=== PATIENT | male | born 1990 | race Caucasian/White ===

== ENCOUNTER → 2020-12-26 12:41 | Outpatient (CLI) | payer OTHER, SELFPAY ==
--- NOTE | ~2020-12-26 | XR_ITS ---
XR wrist RT w scaphoid DATE: 12/26/2020 13:01 INDICATION: Right wrist pain TECHNIQUE: 4 views COMPARISON: None FINDINGS: No fracture or dislocation, periosteal reaction or bone destruction, joint space narrowing, erosive change or chondrocalcinosis. IMPRESSION: Negative Reviewed, dictated and finalized at location A. IMPRESSION: Negative
--- NOTE | ~2020-12-26 | XR_ITS ---
EXAMINATION: XR hand RT min 3V DATE: 12/26/2020 13:01 INDICATION: Right hand pain. TECHNIQUE: 3 views of right hand were obtained. COMPARISON: None. FINDINGS: Bone alignment is normal. No fracture. Joint spaces are normal. IMPRESSION: 1. Normal right hand. Reviewed, dictated and finalized at location B. IMPRESSION: 1. Normal right hand.
== END ==
PROVIDERS: PCP Family Medicine; Visit Provider Family Medicine
DX: M25.531 Pain in right wrist (principal); M79.641 Pain in right hand
CPT/HCPCS: 73110; 73130

== ENCOUNTER 2022-05-07 08:44 | Emergency (ER) | payer OTHER, SELFPAY ==
--- NOTE | 2022-05-07 08:59 | ED.URI ---
HPI - URI/Sore Throat General Chief Complaint: Upper Respiratory Infection Stated Complaint: Sinus, Bodyaches Time Seen by Provider: 05/07/22 09:00 Source: patient Mode of arrival: ambulatory Limitations: no limitations History of Present Illness HPI Narrative: Mayito is a 32-year-old male patient presenting to clinic today with complaints of nasal congestion, fever, chills, sore throat, and body aches x2 days He reports his temperature was highest 102? F. Reports that he had COVID approximately 1 and half months ago MD elicited complaint: fever, cough, sore throat, rhinorrhea and nasal congestion Related Data Allergies Allergy/AdvReac Type Severity Reaction Status Date / Time No Known Allergies Allergy Verified 05/07/22 08:59 Review of Systems Review of Systems: Pertinent positives per HPI. Patient denies any rash, headache, visual changes, dizziness, shortness of breath, chest pain, palpitations, nausea, vomiting, diarrhea, constipation, abdominal pain, or any urinary issues. PMFSH Past Medical History Medical History Acute pharyngitis Allergic rhinitis Hx of infectious mononucleosis Sprain of left foot (~07/30/15) Viral syndrome Family History Family History Father Hypertension Hyperlipidemia Mother Family history of thyroid problem Hypertension Grandparent Hypertension Other Family history of Alzheimer's disease Family history of coronary artery disease Social History Social History Smoking status: Never smoker Second hand tobacco smoke exposure: No Alcohol intake: never Drinks per week: 4 Substance use: never Substance use type: does not use Gender identity (if verbalized by the patient): Male Comments At the time of my signature, I reviewed and agree with the nursing past medical, surgical, social, and family history. There is no relevant family history pertinent to the patient complaint. Exam Narrative: General: Well-developed, well nourished, in no apparent distress Head: Normocephalic, atraumatic Eyes: Pupils equally round and reactive to light bilaterally, EOM intact, sclera and conjunctive clear, no discharge, lids normal Ears: TMs intact and clear, ear canals clear, no drainage, grossly hearing normal. Nose: Nares patent, clear nasal discharge, moderate inflammation, no sinus tenderness. Mouth: Oral pharynx without lesions or masses, good dentition, MMM. oropharynx red Neck: Supple, trachea midline, no enlargement of anterior or posterior cervical nodes, no thyroid masses or goiter palpable. Cardio: Regular rate and rhythm, s1 and s2 normal, no murmur appreciated. Resp: Clear to auscultation bilaterally, no rhonchi, rales, wheezing or rubs Course Course Emergency Course: Portions of this record may have been created with voice recognition software. Level of Care: Express Care Visit Vital Signs Vital signs: Vital Signs Temperature 36.8 C 05/07/22 09:03 Pulse Rate 99 05/07/22 09:03 Respiratory Rate 16 05/07/22 09:03 Blood Pressure 121/76 05/07/22 09:03 Pulse Oximetry 98 05/07/22 09:03 Oxygen Delivery Room Air 05/07/22 09:03 Temperature 36.8 C 05/07/22 09:03 Pulse Rate 99 05/07/22 09:03 Respiratory Rate 16 05/07/22 09:03 Blood Pressure 121/76 05/07/22 09:03 Pulse Oximetry 98 05/07/22 09:03 Oxygen Delivery Room Air 05/07/22 09:03 Vital signs reviewed MDM - URI/Sore Throat MDM Narrative Medical decision making narrative: At the time of visit patient is resting comfortably on the exam table. COVID, flu, and strep testing were obtained and were all negative in the clinic today. I suspect patient has URI/pharyngitis/ viral syndrome. Prescription for prednisone was sent for the nasal congestion and sinus pressure. Supportive
[2022-05-07 09:03] VITALS: BP 121/76; PULSE 99; RESP 16; TEMP 36.8; O2SAT 98
== END 2022-05-07 09:40 | disposition home or self-care (01) ==
PROVIDERS: Emergency Provider Nurse Practitioner Family; PCP Family Medicine
DX: J06.9 Acute upper respiratory infection, unspecified (principal); B34.9 Viral infection, unspecified; J02.9 Acute pharyngitis, unspecified; Z20.822 Contact with and (suspected) exposure to COVID-19; Z86.16 Personal history of COVID-19
CPT/HCPCS: 87426; 87804; 87880; 99213; C9803; G0463

== ENCOUNTER 2022-10-21 19:57 | Emergency (ER) | payer OTHER, SELFPAY ==
--- NOTE | ~2022-10-21 | CT_ITS ---
EXAMINATION: CT BRAIN W/O DATE: 10/22/2022 00:16 INDICATION: Headache. TECHNIQUE: Computed tomography (CT) of the head was performed without intravenous contrast. The dose- length product was 681.00 mGy-cm. Automated exposure control and iterative reconstruction technique w ere employed. COMPARISON: No prior studies for comparison. FINDINGS: Normal brain parenchymal volume for age. Normal stephen-white differentiation. No acute intrac ranial hemorrhage, infarction, mass or mass effect. No ventriculomegaly or midline shift. Midline sagittal images demonstrate a normal corpus callosum, c raniovertebral junction and sella turcica. Basilar cisterns are patent. Paranasal sinuses and mastoids are pneumatized. No depressed skull fractures. IMPRESSION: 1. No acute intracranial abnormality. Reviewed, dictated and finalized at location L.
[2022-10-21 20:18] VITALS: BP 133/102; PULSE 86; RESP 16; TEMP 36.5; O2SAT 100
[2022-10-21 23:24] VITALS: BP 125/100; PULSE 70; RESP 13; TEMP 36.6; O2SAT 100
[2022-10-21 23:39] LABS: Appearance Urine Clear (Clear); Bilirubin Urine Negative (Negative); Blood Urine Negative (Negative); Color Urine Yellow (Yellow); Glucose Urine UA Negative (Negative); Ketones Urine Negative (Negative); Leukocyte Esterase Ur Negative LEU/UL (Negative); Nitrate Urine Negative (Negative); Protein Urine Negative (Negative); Specific Grav Ur 1.012 (1.001-1.035); Urobilinogen Urine 0.2 mg/dL (<2.0); pH Urine 5.5 (5.0-9.0)
[2022-10-21 23:45] LABS: Add Urine Microscopic? NO
[2022-10-21 23:58] LABS: Basophils Absolute Auto 0.1 K/mm3 (0.0-0.1); Eosinophils Absolute Auto 0.1 K/mm3 (0-0.3); Eosinophils Percent Auto 1.2 % (0-4.4); Hematocrit 44.2 % (42.0-52.0); Hemoglobin 14.8 g/dL (14.0-18.0); Immature Granulocyte Absolute 0.01 K/mm3 (0.00-0.031); Immature Granulocyte Percent A 0.1 % (0-0.5); Lymphocytes Absolute Auto 2.94 K/mm3 (0.9-3.2); Lymphocytes Percent Auto 42.8 % (18.3-44.2); Mean Corpuscular HGB Conc 33.5 g/dl (32-36); Mean Corpuscular Hemoglobin 28.3 pg (26-34); Mean Corpuscular Volume 84.5 fl (80-100); Mean Platelet Volume 8.5 fl (7.4-10.4); Monocytes Absolute Auto 0.5 K/mm3 (0.1-0.6); Neutrophils Absolute Auto 3.3 K/mm3 (1.3-6.7); Neutrophils Percent Auto 47.9 % (45.5-73.1); Platelet Count Result 255 k/mm3 (150-375); Red Blood Count 5.23 M/mm3 (4.6-6.20); Red Cell Distribution Width 13.8 % (11.5-14.5); White Blood Count 6.9 K/mm3 (4.5-10.0)
--- NOTE | 2022-10-22 00:08 | ECG_ITS ---
Measurements Intervals [place] Rate: 68 P: 55 WI: 145 QRS: 50 QRSD: 101 T: 50 QT: 378 QTc: 403 Interpretive Statements SINUS RHYTHM NO PREVIOUS ECG AVAILABLE FOR COMPARISON Electronically Signed On 10-22-2022 13:51:54 CDT by Loan Coulter M.D.
[2022-10-22 00:18] LABS: Alanine Aminotransferase 37 U/L (6-50); Albumin Level 4.8 g/dL (3.5-5.1); Alkaline Phosphatase 53 U/L (38-126); Anion Gap 7 mmol/L (8-16); Aspartate Amino Transferase 32 U/L (17-59); Bilirubin,Total 0.6 mg/dL (0.2-1.3); Blood Urea Nitrogen 18 mg/dL (9-20); Calcium 8.8 mg/dL (8.4-10.2); Carbon Dioxide 29 mmol/L (22-30); Chloride 102 mmol/L (98-107); Estimated CRCL calculation 108 ml/min; Estimated Glomerular Filt Rate > 60; Glucose 100 mg/dL (65-110); Lipase 43 U/L (23-300); Potassium 4.2 mmol/L (3.4-5.0); Sodium 138 mmol/L (137-145)
[2022-10-22] MEDS: SODIUM CHLORIDE 0.9% IV 1,000 ML 999 ML IV CONT (00:31)
[2022-10-22] MEDS: diphenhydrAMINE HCl INJ 50 MG/ML VIAL IV PUSH (00:31)
[2022-10-22] MEDS: METOCLOPRAMIDE HCL INJ 10 MG/2 ML VIAL IV PUSH (00:31)
--- NOTE | 2022-10-22 01:15 | ED.GENADULT ---
HPI - General Adult General Chief complaint: Nausea/Vomiting/Diarrhea Stated complaint: [place], dizziness, nausea and vomiting since yesterday Time Seen by Provider: 10/21/22 23:48 History of Present Illness HPI narrative: Patient 32-year-old gentleman who presents emergency department with chief complaint of headache and nausea and vomiting. Reports that yesterday he had symptoms that started when he was working patient reports no focal motor deficits reports that symptoms went away and then this evening after he was eating the symptoms came back patient reports he felt very nauseated reports that he had a headache, patient reports that he is arrived to the emergency department his symptoms are starting to feel somewhat better. Related Data Allergies Allergy/AdvReac Type Severity Reaction Status Date / Time No Known Allergies Allergy Verified 10/21/22 19:57 Review of Systems Review of Systems: A 10 system review of systems was completed on the patient and is negative except for what is stated in the HPI. Nursing and ancillary documentation was reviewed. [facility] Past Medical History Medical History Acute pharyngitis Allergic rhinitis Hx of infectious mononucleosis Sprain of left foot (~07/30/15) Viral syndrome Family History Family History Father Hypertension Hyperlipidemia Mother Family history of thyroid problem Hypertension Grandparent Hypertension Other Family history of Alzheimer's disease Family history of coronary artery disease Social History Social History Smoking status: Never smoker Second hand tobacco smoke exposure: No Alcohol intake: never Drinks per week: 4 Substance use: never Substance use type: does not use Gender identity (if verbalized by the patient): Male Exam Narrative: GENERAL: Well-appearing, well-nourished, and in no acute distress. HEAD: Normocephalic, atraumatic. EYES: PERRLA and EOMI. ENT: Nares clear, no rhinorrhea or epistaxis. Mucous membranes moist. NECK: Supple. CHEST: Clear to auscultation. No respiratory distress. HEART: Regular rate and rhythm. No murmur heard. Normal peripheral pulses. ABDOMEN: Soft, nontender, nondistended, normal active bowel sounds. EXTREMITIES: Normal range of motion. No edema. SKIN: Warm, dry, no rash. NEURO: No focal deficits. Alert and oriented x3. PSYCH: Normal mood and affect. Course Vital Signs Vital signs: Vital Signs Temperature 36.5 C 10/21/22 20:18 Pulse Rate 86 10/21/22 20:18 Respiratory Rate 16 10/21/22 20:18 Blood Pressure 133/102 H 10/21/22 20:18 Pulse Oximetry 100 10/21/22 20:18 Oxygen Delivery Room Air 10/21/22 20:18 Temperature 36.6 C 10/21/22 23:24 Pulse Rate 70 10/21/22 23:24 Respiratory Rate 13 10/21/22 23:24 Blood Pressure 125/100 H 10/21/22 23:24 Pulse Oximetry 100 10/21/22 23:24 Oxygen Delivery Room Air 10/21/22 20:18 Medical Decision Making MDM Narrative Medical decision making narrative: Differential diagnosis includes migraine, intracranial hemorrhage, viral syndrome, dehydration, electrolyte abnormality. CT head showed no evidence of acute abnormality Laboratory studies were obtained which showed a normal CBC normal electrolytes urinalysis was within normal limits specific gravity was 1.012 and there were negative ketones Patient received a liter of fluids and received a typical migraine cocktail symptoms have essentially resolved at this point and the patient be discharged home. Vital Signs Vital Signs: Vital Signs Temperature 36.5 C 10/21/22 20:18 Pulse Rate 86 10/21/22 20:18 Respiratory Rate 16 10/21/22 20:18 Blood Pressure 133/102 H 10/21/22 20:18 Pulse Oximetry 100 10/21/22 20:18 Oxygen Delivery Room Air 10/21/22 20:1
== END 2022-10-22 01:27 | disposition home or self-care (01) ==
PROVIDERS: Emergency Provider Emergency Medicine; PCP Family Medicine
DX: R51.9 Headache, unspecified (principal)
CPT/HCPCS: 36415; 70450; 80053; 81003; 83690; 85025; 93005; 96361; 96374; 96375; 99284; J1200; J2765; J7030

== ENCOUNTER 2023-01-22 16:47 | Emergency (ER) | payer OTHER, SELFPAY ==
--- NOTE | 2023-01-22 16:54 | ED.URI ---
HPI - URI/Sore Throat General Chief Complaint: Upper Respiratory Infection Stated Complaint: Sore Throat,Runny Nose Time Seen by Provider: 01/22/23 16:54 Source: patient Mode of arrival: ambulatory Limitations: no limitations History of Present Illness HPI Narrative: 32-year-old male presents with complaint of nasal congestion, postnasal drainage, sore throat for approximately 2 weeks. Patient reports pain to right ear for past 3-4 days. Afebrile. Denies nausea vomiting diarrhea. Taking [id number] cold and flu medication to treat his symptoms. All systems reviewed and negative except as noted above. Related Data Allergies Allergy/AdvReac Type Severity Reaction Status Date / Time No Known Allergies Allergy Verified 01/22/23 16:49 Review of Systems Review of Systems: CONSTITUTIONAL: Denies fever, chills, or sweats. EYES: Denies visual changes, redness, or discharge. ENT: Reports rhinorrhea, congestion, sore throat, right ear pain. CARDIOVASCULAR: Denies chest pain, palpitations, or edema. RESPIRATORY: Denies cough or dyspnea. GASTROINTESTINAL: Denies abdominal pain, nausea, vomiting, or diarrhea. GENITOURINARY: Denies dysuria or hematuria. SKIN: Denies rash or itching. MUSCULOSKELETAL: Denies back pain, joint pain, or myalgia. NEUROLOGIC: Denies headache, numbness, or weakness. PSYCHIATRIC: Denies anxiety or depression. All other systems reviewed are negative, except as documented in HPI. [facility] Past Medical History Medical History Acute pharyngitis Allergic rhinitis Hx of infectious mononucleosis Sprain of left foot (~07/30/15) Viral syndrome Family History Family History Father Hypertension Hyperlipidemia Mother Family history of thyroid problem Hypertension Grandparent Hypertension Other Family history of Alzheimer's disease Family history of coronary artery disease Social History Social History Smoking status: Never smoker Second hand tobacco smoke exposure: No Alcohol intake: never Drinks per week: 4 Substance use: never Substance use type: does not use Gender identity (if verbalized by the patient): Male Comments At time of signature, agree with nursing past medical, surgical, social and family history. There is no relevant family history pertinent to the presenting complaint. Exam Narrative: GENERAL: This is a well-nourished, well-developed patient, in no apparent distress. HEAD: normocephalic, atraumatic. EYES: PERRL. Sclera clear/white. Vision is grossly intact. EARS: External ears normal, auditory canals clear and without drainage, fluid to bilateral TMs, mild erythema R ear NOSE: External nose normal with clear nasal drainage, moderate congestion THROAT: Mucous membranes moist, mild erythema wtih PND NECK: Neck supple, non-tender without lymphadenopathy, masses or thyromegaly. CARDIOVASCULAR: Regular rate and rhythm without murmurs, gallops, or rubs. RESPIRATORY: Clear to auscultation. Breath sounds equal bilaterally. No wheezes, rales, or rhonchi. SKIN: warm, Dry, intact with no suspicious lesions or rash, good texture and turgor. NEURO: awake, alert, and oriented to person, place and time. There were no obvious focal neurologic abnormalities. EXTREMITIES: No joint tenderness, effusion, or edema noted. Course Course Level of Care: Express Care Visit Vital Signs Vital signs: Reviewed MDM - URI/Sore Throat MDM Narrative Medical decision making narrative: Patient is aware of diagnosis, understands and agrees to treatment plan. Anticipatory guidance given. Patient agrees to follow-up as directed and is aware of reasons to seek care at the emergency department. Portions of this record may have been created with voice recognition software Differenti
[2023-01-22 16:55] VITALS: BP 138/86; PULSE 68; RESP 18; TEMP 36.3; O2SAT 99
== END 2023-01-22 17:07 | disposition home or self-care (01) ==
PROVIDERS: Emergency Provider Nurse Practitioner Family
DX: H65.01 Acute serous otitis media, right ear (principal); J01.90 Acute sinusitis, unspecified
CPT/HCPCS: 99213; G0463

== ENCOUNTER 2023-04-05 08:10 | Emergency (ER) | payer OTHER, SELFPAY ==
--- NOTE | ~2023-04-05 | XR_ITS ---
EXAMINATION: [id number] DATE: 04/05/2023 08:50 INDICATION: Left rib pain. Fall. TECHNIQUE: A frontal view of the chest and 2 views on 4 radiographs of the left ribs were obtained. COMPARISON: None. FINDINGS: There is no pneumonia, pleural effusion, or pneumothorax. The heart size is normal. IMPRESSION: 1. No rib fracture. Reviewed, dictated and finalized at location A. STRIKER IMPRESSION: 1. No rib fracture.
[2023-04-05 08:15] VITALS: BP 140/80; PULSE 68; RESP 16; TEMP 35.7; O2SAT 100
--- NOTE | 2023-04-05 08:38 | ED.GENADULT ---
HPI - General Adult General Chief complaint: Fall Stated complaint: Lt rib pain Time Seen by Provider: 04/05/23 08:32 Source: patient and RN notes reviewed Mode of arrival: ambulatory Limitations: no limitations History of Present Illness HPI narrative: Patient presents today complaining of left lateral and posterior rib pain. Five days ago, patient was walking his dog outside when he tripped and fell, striking his ribs on the curb. Reports occasional radiation from the ribs to the left groin area. Pain increases with movement. Currently rates his pain 11/16 has been taking Tylenol with mild relief. Related Data Home Medications Medication Instructions Recorded Confirmed No Home Medications 04/05/23 04/05/23 Allergies Allergy/AdvReac Type Severity Reaction Status Date / Time No Known Allergies Allergy Verified 04/05/23 08:11 Review of Systems Review of Systems: CONSTITUTIONAL: Denies body aches, fever, chills, or sweats. EYES: Denies visual changes, redness, or discharge. ENT: Denies rhinorrhea, congestion, sore throat, or otalgia. CARDIOVASCULAR: Denies chest pain, palpitations, or edema. RESPIRATORY: Denies cough or dyspnea.+ left rib pain GASTROINTESTINAL: Denies abdominal pain, nausea, vomiting, or diarrhea. GENITOURINARY: Denies dysuria or hematuria. SKIN: Denies rash, itching, or wounds. MUSCULOSKELETAL: Denies back pain, joint pain, or myalgia. NEUROLOGIC: Denies headache, numbness, tingling, or weakness. PSYCH: Denies depression or anxiety. [facility] Past Medical History Medical History Acute pharyngitis Allergic rhinitis Hx of infectious mononucleosis Sprain of left foot (~07/30/15) Viral syndrome Family History Family History Father Hypertension Hyperlipidemia Mother Family history of thyroid problem Hypertension Grandparent Hypertension Other Family history of Alzheimer's disease Family history of coronary artery disease Social History Social History Smoking status: Never smoker Second hand tobacco smoke exposure: No Alcohol intake: never Drinks per week: 4 Substance use: never Substance use type: does not use Gender identity (if verbalized by the patient): Male Comments At time of signature, I have reviewed and agree with nursing past medical, surgical, social and family history unless otherwise noted. Please see nursing chart for further information. There is no relevant family history pertinent to the presenting complaint Exam Narrative: GENERAL: Well-appearing, well-nourished, and in no acute distress. HEAD: Normocephalic, atraumatic. EYES: EOMI. No redness or drainage. Conjunctivae normal. ENT: Mucous membranes pink and moist. NECK: Normal AROM. Supple. No lymphadenopathy. CHEST: No respiratory distress. Clear to auscultation. Tenderness to the left lower lateral and posterior ribs. No deformity, edema, ecchymosis, or crepitus noted. HEART: Regular rate and rhythm. No murmur appreciated. Normal peripheral pulses. ABDOMEN: Soft, nontender, nondistended, normal active bowel sounds. EXTREMITIES: Normal range of motion. No edema. SKIN: Warm, dry, no rash. Capillary refill normal. Normal skin turgor. NEURO: No focal deficits. Alert and oriented x3. Gait steady. PSYCH: Normal affect. No signs of depression or anxiety. Course Course Level of Care: Express Care Visit Vital Signs Vital signs: Vital Signs Temperature 96.2 F L 04/05/23 08:15 Pulse Rate 68 04/05/23 08:15 Respiratory Rate 16 04/05/23 08:15 Blood Pressure 140/80 04/05/23 08:15 Pulse Oximetry 100 04/05/23 08:15 Oxygen Delivery Room Air 04/05/23 08:15 Temperature 96.2 F L 04/05/23 08:15 Pulse Rate 68 04/05/23 08:15 Respiratory Rate 16 04/05/23 08:15 Blood Pressure
== END 2023-04-05 09:07 | disposition home or self-care (01) ==
PROVIDERS: Emergency Provider Nurse Practitioner; PCP Family Medicine
DX: S20.212A Contusion of left front wall of thorax, initial encounter (principal); W01.0XXA Fall on same level from slipping, tripping and stumbling without subsequent striking against object, initial encounter
CPT/HCPCS: 71101; 99213; G0463

== ENCOUNTER 2023-06-15 13:41 | Emergency (ER) | payer OTHER, SELFPAY ==
[2023-06-15 13:52] VITALS: BP 147/80; PULSE 94; RESP 18; TEMP 37.2; O2SAT 100
--- NOTE | 2023-06-15 13:52 | ED.ALLEREA ---
HPI - Allergic Reaction General Chief complaint: Allergic Reaction Stated complaint: Allergic Reaction, Throat Swelling Source: patient Mode of arrival: ambulatory Limitations: no limitations History of Present Illness HPI narrative: 33 y/o male presented for c/o throat swelling sensation. Symptoms started after eating a chicken sandwich at lunch. Denies lip or tongue swelling, or itching. States his throat looks swollen. Denies sob, wheezing, dizziness, difficulty swallowing or maintaining secretions, n/v/d/f/c. Denies any allergies. Related Data Home Medications Medication Instructions Recorded Confirmed No Home Medications 06/15/23 06/15/23 Allergies Allergy/AdvReac Type Severity Reaction Status Date / Time No Known Allergies Allergy Verified 06/15/23 13:51 Review of Systems Review of Systems: CONSTITUTIONAL: Denies body aches, fever, chills, or sweats. EYES: Denies visual changes, redness, or discharge. ENT: Endorses throat swelling Denies rhinorrhea, congestion, sore throat, or otalgia. CARDIOVASCULAR: Denies chest pain, palpitations, or edema. RESPIRATORY: Denies cough or dyspnea. GASTROINTESTINAL: Denies abdominal pain, nausea, vomiting, or diarrhea. SKIN: Denies rash, itching MUSCULOSKELETAL: Denies back pain, joint pain, or myalgia. NEUROLOGIC: Denies headache, numbness, tingling, or weakness. All systems reviewed & are unremarkable except as noted in HPI and below PMFSH Past Medical History Medical History Acute pharyngitis Allergic rhinitis Hx of infectious mononucleosis Sprain of left foot (~07/30/15) Viral syndrome Family History Family History Father Hypertension Hyperlipidemia Mother Family history of thyroid problem Hypertension Grandparent Hypertension Other Family history of Alzheimer's disease Family history of coronary artery disease Social History Social History Smoking status: Never smoker Second hand tobacco smoke exposure: No Alcohol intake: never Drinks per week: 4 Substance use: never Substance use type: does not use Gender identity (if verbalized by the patient): Male Comments At time of signature, I have reviewed and agree with nursing past medical, surgical, social and family history unless otherwise noted. Please see nursing chart for further information. There is no relevant family history pertinent to the presenting complaint Exam Narrative: GENERAL: Well-appearing and in no acute distress. EYES: EOMI. No redness or drainage. Conjunctivae normal. ENT: Mucous membranes pink and moist. Tonsils enlarged 2+, mild pharyngeal swelling. Airway patent. No rhinorrhea. TMs normal bilaterally. Uvula midline. NECK: Normal AROM. Supple. No lymphadenopathy or induration below mandible CHEST: No respiratory distress. Clear to auscultation. Speaks full sentences. HEART: Regular rate and rhythm. No murmur appreciated. Normal peripheral pulses. SKIN: Warm, dry, no rash Normal skin turgor. NEURO: Alert and oriented x3. Gait steady. PSYCH: Normal affect. Course Course Emergency Course: Patient is aware of diagnosis, understands and agrees to treatment plan. Anticipatory guidance given. Patient agrees to follow-up as directed and is aware of reasons to seek care at the emergency department. Portions of this record may have been created with voice recognition software Level of Care: Express Care Visit Vital Signs Vital signs: Vital Signs Temperature 99.0 F 06/15/23 13:52 Pulse Rate 94 06/15/23 13:52 Respiratory Rate 18 06/15/23 13:52 Blood Pressure 147/80 H 06/15/23 13:52 Pulse Oximetry 100 06/15/23 13:52 Oxygen Delivery Room Air 06/15/23 13:52 Temperature 99.0 F 06/15/23 13:52 Pulse Rate 94 06/15/23 13:52 Respiratory Rate 18 0
[2023-06-15] MEDS: methylPREDNISolone SOD SUCC 125 MG VIAL IM (13:58)
[2023-06-15] MEDS: FAMOTIDINE 20 MG TABLET 40 MG PO (14:00)
[2023-06-15] MEDS: diphenhydrAMINE HCl CAP 25 MG CAPSULE PO (14:01)
== END 2023-06-15 14:51 | disposition short-term general hospital (02) ==
PROVIDERS: Emergency Provider Nurse Practitioner Family; PCP Family Medicine
DX: J02.9 Acute pharyngitis, unspecified (principal)
CPT/HCPCS: 96372; 99213; A9270; G0463; J2930

== ENCOUNTER 2023-06-15 15:05 | Emergency (ER) | payer OTHER, SELFPAY ==
[2023-06-15 15:13] VITALS: BP 142/96; PULSE 75; RESP 20; TEMP 36.9; O2SAT 100
[2023-06-15 15:29] VITALS: BP 136/84; PULSE 82; RESP 14; O2SAT 100
[2023-06-15 15:55] LABS: Strep Group A RT-PCR DETECTED (Negative)
[2023-06-15 16:37] VITALS: BP 122/81; PULSE 77; RESP 17; O2SAT 98
--- NOTE | 2023-06-15 17:40 | ED.ALLEREA ---
HPI - Allergic Reaction General Chief complaint: Allergic Reaction Stated complaint: allergic reaction Time Seen by Provider: 06/15/23 15:59 History of Present Illness HPI narrative: 33-year-old male presenting emergency department from urgent care for concern of possible allergic reaction. Patient began having some sore throat after eating at the urgent care he is treated with epinephrine, famotidine steroids and Benadryl. Patient presented to the emergency department by private transport. Patient denies any rashes swelling of tongue lips chest pain or shortness of breath. Patient complaint is sore throat. Patient states he does feel improved after the treatment. Patient did have hot wings for lunch. Related Data Allergies Allergy/AdvReac Type Severity Reaction Status Date / Time No Known Allergies Allergy Verified 06/15/23 13:51 Review of Systems Review of Systems: All systems reviewed & are unremarkable except as noted in HPI and below PMFSH Past Medical History Medical History Acute pharyngitis Allergic rhinitis Hx of infectious mononucleosis Sprain of left foot (~07/30/15) Viral syndrome Family History Family History Father Hypertension Hyperlipidemia Mother Family history of thyroid problem Hypertension Grandparent Hypertension Other Family history of Alzheimer's disease Family history of coronary artery disease Social History Social History Smoking status: Never smoker Second hand tobacco smoke exposure: No Alcohol intake: never Drinks per week: 4 Substance use: never Substance use type: does not use Gender identity (if verbalized by the patient): Male Exam Narrative: APPEARANCE: Well appearing, no pain, no distress, well-nourished. HEAD: normocephalic, atraumatic. EYES: PERRLA/EOMI, conjunctivae clear. NOSE: Normal no drainage EARS:TMS clear with good light reflex. THROAT: Pharynx clear, no exudate. NECK: Supple. No adenopathy, no masses. RESPIRATORY: Airway patent, respirations nonlabored. Clear to auscultation bilaterally, no rales, rhonchi, wheezing. CARDIOVASCULAR: Regular rate and rhythm without murmurs rubs or gallops. ABDOMINAL: Soft, nontender, nondistended, normal bowel sounds MUSCULOSKELETAL: Moves all extremities. Strength/ROM intact, No edema, No calf tenderness. NEURO: Alert. Cranial nerves II through XII intact. Grossly intact SKIN: Warm, dry. Normal Color Course Course Emergency Course: 33-year-old male presenting emergency department for evaluation of a possible allergic reaction. Patient did test positive for group a strep. Patient will be started on Augmentin and patient will also be started short course of steroids. All questions concerns were addressed patient was comfortable with the plan for discharge and close follow-up. Vital Signs Vital signs: Vital Signs Temperature 98.4 F 06/15/23 15:13 Pulse Rate 75 06/15/23 15:13 Respiratory Rate 20 06/15/23 15:13 Blood Pressure 142/96 H 06/15/23 15:13 Pulse Oximetry 100 06/15/23 15:13 Oxygen Delivery Room Air 06/15/23 15:13 Temperature 98.2 F 06/15/23 17:52 Pulse Rate 67 06/15/23 17:52 Respiratory Rate 15 06/15/23 17:52 Blood Pressure 124/79 06/15/23 17:52 Pulse Oximetry 100 06/15/23 17:52 Oxygen Delivery Room Air 06/15/23 15:13 MDM - Allergic Reaction Lab Data Labs: Lab Results 06/15/23 Range/Units 15:28 Group A Strep (PCR) Detected A (Negative) Discharge Plan Discharge Clinical Impression: Pharyngitis, Strep pharyngitis Patient Disposition: Home, Self-Care Condition: Stable Instructions: Antibiotic Form, Strep Throat (DC), General Allergic Reaction (ED) Additional Instructions: Antibiotic as directed until completed. Tylenol for pain cont
[2023-06-15] MEDS: AMOXICILLIN/CLAVULANATE K 875-125 MG TAB 1 TABLET PO (17:49)
[2023-06-15 17:52] VITALS: BP 124/79; PULSE 67; RESP 15; TEMP 36.8; O2SAT 100
== END 2023-06-15 17:53 | disposition home or self-care (01) ==
PROVIDERS: Emergency Provider Emergency Medicine; PCP Family Medicine
DX: J02.0 Streptococcal pharyngitis (principal)
CPT/HCPCS: 87651; 96372; 99283; A9270; J2930

== ENCOUNTER 2024-05-24 16:14 | Emergency (ER) | payer OTHER, SELFPAY ==
[2024-05-24 16:31] VITALS: BP 147/85; PULSE 100; RESP 18; TEMP 37.9; O2SAT 100
[2024-05-24 16:38] LABS: EDSTREPNEGPOS1 Negative (Negative)
[2024-05-24 16:48] LABS: EDCOVIDSCREEN Negative (Negative); EDINFLUASCREEN Negative (Negative); EDINFLUBSCREEN Negative (Negative)
--- NOTE | 2024-05-24 17:00 | ED_ITS ---
HPI - General Adult General Chief complaint: Upper Respiratory Infection Stated complaint: congestion and throat pain Source: patient Mode of arrival: ambulatory Limitations: no limitations History of Present Illness HPI narrative: Pt presents for evaluation of sick symptoms. Symptom onset yesterday. Symptoms include fever, sinus congestion, thick green nasal discharge, sore throat, generalized body aches and cough. No chills, nausea, vomiting or diarrhea. His child attends daycare and gets sick often but is not currently sick. no other recent sick contacts to his knowledge. He does not smoke. He tried taking DayQuil and NyQuil for symptoms which seemed to help. Related Data Allergies Allergy/AdvReac Type Severity Reaction Status Date / Time No Known Allergies Allergy Verified 05/24/24 16:20 Review of Systems Review of Systems: CONSTITUTIONAL: Reports fever. Denies chills, or sweats. EYES: Denies visual changes, redness, or discharge. ENT: Reports sinus congestion, thick green nasal drainage and sore throat CARDIOVASCULAR: Denies chest pain, palpitations, or edema. RESPIRATORY: Reports cough. Denies SOB GASTROINTESTINAL: Denies abdominal pain, nausea, vomiting, or diarrhea. GENITOURINARY: Denies dysuria or hematuria. SKIN: Denies rash or itching. MUSCULOSKELETAL: Reports generalized body aches. NEUROLOGIC: Denies headache, numbness, dizziness, or weakness. PSYCHIATRIC: Denies anxiety or depression. [facility] Past Medical History Medical History Allergic rhinitis Hx of infectious mononucleosis Sprain of left foot (~07/30/15) Acute pharyngitis Viral syndrome Surgical History Surgical History No pertinent past surgical history Family History Family History Father Hypertension Hyperlipidemia Mother Family history of thyroid problem Hypertension Grandparent Hypertension Other Family history of Alzheimer's disease Family history of coronary artery disease Social History Social History Smoking status: Never smoker Second hand tobacco smoke exposure: No Alcohol intake: never Drinks per week: 4 Substance use: never Substance use type: does not use Gender identity (if verbalized by the patient): Male Exam Narrative: GENERAL: Appears acutely ill but nontoxic. Well-nourished, and in no acute distress. HEAD: Normocephalic, atraumatic. EYES: PERRLA and EOMI. ENT: Nares clear, no rhinorrhea or epistaxis. Mucous membranes moist. Posterior pharyngeal erythema. Bilateral TMs pearly stephen nonbulging NECK: Supple. No adenopathy or masses. No carotid bruits or JVD CHEST: Clear to auscultation. No respiratory distress. No wheezes rales or rhonchi HEART: Regular rate and rhythm. No murmur heard. Normal peripheral pulses. ABDOMEN: Soft, nontender, nondistended, normal active bowel sounds. EXTREMITIES: Normal range of motion. No edema. SKIN: Warm, dry, no rash. NEURO: No focal deficits. Alert and oriented x3. PSYCH: Normal mood and affect. Course Course Emergency Course: This is a 34-year-old male who presented for evaluation of sick symptoms. COVID, flu, strep were all negative. He meets criteria for bacterial sinusitis based upon presence of fever and mucopurulent nasal drainage. Will dc with augmentin. Increase hydration. OTC agents for symptom management. Follow up with primary provider. Go to the ER for worsening symptoms. Pt in agreement with plan of care. Level of Care: Express Care Visit Vital Signs Vital signs: Vital Signs Temperature 37.9 C H 05/24/24 16:31 Pulse Rate 100 05/24/24 16:31 Respiratory Rate 18 05/24/24 16:31 Blood Pressure 147/85 H 05/24/24 16:31 Pulse Oximetry 100 05/24/24 16:31 Oxygen Delivery Room Air 05/24/24 16:31 Temperature 37.9 C H 05/24/24 16:31 Pulse Rate 100 05/24/24 16:31 Respiratory Rate 18 05/24/24 16:31 Blood Pressure 147/85 H 05/24/24 16:31 Pulse Oximetry 100 05/24/24 16:31 Oxygen Delivery Room Air 05/24/24 16:31 Medical Decision Making Vital Signs Vital Signs: Vital Signs Temperature 37.9 C H 05/24/24 16:31 Pulse Rate 100 05/24/24 16:31 Respiratory Rate 18 05/24/24 16:31 Blood Pressure 147/85 H 05/24/24 16:31 Pulse Oximetry 100 05/24/24 16:31 Oxygen Delivery Room Air 05/24/24 16:31 Temperature 37.9 C H 05/24/24 16:31 Pulse Rate 100 05/24/24 16:31 Respiratory Rate 18 05/24/24 16:31 Blood Pressure 147/85 H 05/24/24 16:31 Pulse Oximetry 100 05/24/24 16:31 Oxygen Delivery Room Air 05/24/24 16:31 Lab Data Labs: Lab Results 05/24/24 05/24/24 Range/Units 16:36 16:47 POC Influenza A Ag Negative (Negative) POC Influenza B Ag Negative (Negative) POC SARS CoV-2 Ag Negative (Negative) POC Grp A Strep Screen Negative (Negative) Discharge Plan Discharge Clinical Impression: Sinusitis Patient Disposition: Home, Self-Care Condition: Stable Instructions: Antibiotic Form, Sinusitis (ED) Patient Language: Monegasque Prescriptions: New amoxicillin-pot clavulanate 875-125 mg tablet 1 tablet PO Q12H Qty: 20 0RF Follow-up/Referrals: Ladonna Epps MD [Primary Care Provider] - Time of Disposition: 16:59
== END 2024-05-24 17:02 | disposition home or self-care (01) ==
PROVIDERS: Emergency Provider Nurse Practitioner; PCP Family Medicine
DX: J32.9 Chronic sinusitis, unspecified (principal); Z20.822 Contact with and (suspected) exposure to COVID-19
CPT/HCPCS: 87081; 87426; 87804; 87880; 99213; G0463